=== PATIENT | male | born 1950 | race Caucasian/White ===

== ENCOUNTER 2021-07-20 12:33 | Emergency (ER) | payer MEDICARE, BC, OTHER ==
[~2021-07-20] VITALS: Ht 185.4 cm; Wt 101.2 kg
[2021-07-20] MEDS ORDERED: AMLODIPINE BESY10 MG PO (14:40)
[2021-07-20] MEDS ORDERED: OMEPRAZOLE20 MG PO (14:40)
[2021-07-20] MEDS ORDERED: HYDROCHLOROTH12.5 MG PO (14:41)
[2021-07-20] MEDS ORDERED: LOSARTAN-HCTZ1 EACH PO (14:41)
== END 2021-07-21 03:23 | disposition short-term general hospital (02) ==
LOC: ED 12:33
DX: K85.90 Acute pancreatitis without necrosis or infection, unspecified (principal); K81.9 Cholecystitis, unspecified; R22.9 Localized swelling, mass and lump, unspecified; K83.1 Obstruction of bile duct; Z20.822 Contact with and (suspected) exposure to COVID-19; I10 Essential (primary) hypertension; Z79.899 Other long term (current) drug therapy
CPT/HCPCS: 74177; 76705; 80053; 81001; 83605; 83690; 85025; 87040; 87088; 96366; 96375; 96376; 99285-25; C9803; J0690; J0694; J2270; J2405; J3480; J7030; U0003

== ENCOUNTER 2021-08-03 09:00 | Day surgery (SDC) | payer MEDICARE, OTHER ==
[~2021-08-03] VITALS: Ht 185.4 cm; Wt 97.0 kg
[~2021-08-03 09:00] MED LIST: AMLODIPINE BESY10 MG PO; HYDROCHLOROTH12.5 MG PO; LOSARTAN-HCTZ1 EACH PO; OMEPRAZOLE20 MG PO
--- NOTE | 2021-08-03 10:28 | NUR ---
up to br. returned to bed and warm blanket on. iv patent. updated on wait.
--- NOTE | 2021-08-03 13:12 | NUR ---
08/03/21 1312 VIDAL MORELOS 1306-PATIENT TO PACU ON 8L VIA MASK. PATIENT IS NONAROUSABLE. ORAL AIRWAY IN PLACE. TITRATED O2 TO 6L VIA MASK. VSS.
[2021-08-03] MEDS ORDERED: IBUPROFEN600 MG PO (13:20)
[2021-08-03] MEDS ORDERED: ACETAMINOPHEN500 MG PO (13:21)
[2021-08-03] MEDS ORDERED: OXYCODON-ACETA1 EAC2 PO (13:21)
--- NOTE | 2021-08-03 15:11 | NUR ---
1515 - PT DISCHARGED HOME WITH . PT TRANSFERRED TO THE WHEELCHAIR WITH OUT DIFFICULTY. PT LOADED INTO VEHICLE INDEPENDANTLY. PAPERWORK IN HAND.
--- NOTE | 2021-08-05 15:08 | OR ---
[facility] [address], [place] [address] Signed DATE OF OPERATION: 08/03/2021 SURGEON: Abhijit Esquivel MD PREOPERATIVE DIAGNOSES: 1. History of gallstone pancreatitis (resolved). 2. Chronic calculous cholecystitis. POSTOPERATIVE DIAGNOSES: 1. History of gallstone pancreatitis (resolved). 2. Chronic calculous cholecystitis. PROCEDURES: 1. Laparoscopic cholecystectomy with intraoperative cholangiogram, prolonged, complicated and difficult. 2. Surgeon-directed fluoroscopy. ANESTHESIA: General endotracheal, Thai Camron, WOODWORKER HELPER and local 10 mL of 0.25% Marcaine with epinephrine. INDICATION: This 70-year-old white man is a patient of Abhijit Aguero PA-C at [place], [place]. He presented to the [facility] Emergency Room on July 20, 2021, with upper abdominal pain, elevated liver enzymes and lipase level greater than 2000. A CT scan showed a "double duct sign." The gallbladder was not abnormally distended. There were no stones within the lumen. Ultrasound had been performed showing a dilated intrahepatic and extrahepatic bile duct without sign of stricture and no visualization of stone. There was thought to be possible neoplasm at the ampulla. On that basis, he was sent to [place], [place] where he was evaluated and ERCP has been intended. The ERCP showed no evidence of stone and an ERCP was never performed The patient is known to have heavy alcohol use and his pancreatitis was uncertain as to relation of gallstones versus alcohol abuse. An ultrasound in [place] did demonstrate in fact stones within the gallbladder. The patient is now doing much better. His bilirubin is only slightly elevated and liver enzymes particularly much better and lipase about 100. He is admitted at this time to undergo cholecystectomy preferred by a laparoscopic approach. He understands the risks of bleeding, infection, bile duct injury, need for open procedure and other unforeseen Electronically Signed By: ABHIJIT ESQUIVEL MD 08/05/21 1508 PATIENT NAME: CHAITANYA NEWBY OPERATIVE REPORT DATE OF : 54 REPORT #: [id number] PHYSICIAN: ABHIJIT ESQUIVEL MD PCP: ABHIJIT AGUERO REPORT IS CONFIDENTIAL AND NOT TO BE RELEASED WITHOUT AUTHORIZATION [facility] [address] [place], [place] [address] Signed complications. Understanding this, he wished to proceed. FINDINGS: The gallbladder was largely obscured by dense omental adhesions, but was ultimately dissected free. This was prolonged and difficult but it was accomplished safely. The gallbladder itself had chronic inflammatory change of the infundibulum in particular. Cholangiogram performed showed no sign of obstructing stone. The biliary tree was still slightly dilated, particularly the cystic duct which was markedly dilated and at least the diameter of the common hepatic duct. It was not only clipped, but secured with an Endoloop tie as well. The gallbladder once excised had small dark soft stones. No sign of neoplasm. The liver itself appeared normal without sign of cirrhotic changes. There was no saponification noted. Given the extent of dissection with omental adhesions, fibrin glue (Tisseel) was used to good effect. DESCRIPTION OF PROCEDURE: The patient was brought to the operating room, given a general endotracheal anesthetic. Preoperative antibiotics were given. Sequential compression device stockings used and heparin subcutaneously administered. The abdomen was prepared with chlorhexidine solution and draped sterilely. An infraumbilical incision was made and using an open Luis Fernando cannula technique pneumoperitoneum achieved to a level of 14 mmHg of carbon dioxide gas. Intra-abdominal inspection showed no sign of ascites or carcinomatosis. The liver appeared normal without nodular changes or cirrhotic changes in any way. The gallbladder was completely obscured from view. Three additional trocars were placed in usual configuration in the subxiphoid, right midclavicular, and right anterior axillary line. Gallbladder tip was elevated and dense omental adhesions were noted. These were taken down with blunt electrocautery dissection sequentially elevating the liver ultimately securing it well. With hook type electrocautery, the infundibulum was dissected free. Cystic arterial branch was identified as well as a relatively large cystic duct. A window was created between the cystic duct and the liver and the critical view of safety maintained identifying well the cystic duct. A clip was applied across gallbladder cystic duct junction, but it certainly did not cover it given its dilated appearance. A transverse choledochotomy was made in the cystic duct, egress of minimal amounts of bile was noted. Using an Denson type cholangiocatheter intraoperative cholangiography was undertaken showing free flow of contrast in the biliary tree. The biliary tree was notable for a very long cystic duct and inserted very distally on a common hepatic and common bile duct junction. Notably, the cystic duct was as dilated in its appearance as the common hepatic duct itself. There was no sign of filling defect and contrast flowed into the duodenum. The catheter was removed the cystic duct was doubly clipped and additionally secured with a PDS Endoloop tie. The gallbladder was dissected free in a retrograde fashion Electronically Signed By: ABHIJIT ESQUIVEL MD 08/05/21 1508 PATIENT NAME: CHAITANYA NEWBY OPERATIVE REPORT DATE OF : 54 REPORT #: [id number] PHYSICIAN: ABHIJIT ESQUIVEL MD PCP: ABHIJIT AGUERO REPORT IS CONFIDENTIAL AND NOT TO BE RELEASED WITHOUT AUTHORIZATION [facility] [address] [place], [place] [address] Signed using electrocautery. The gallbladder was entered and some bile was spilled, but no stone was spilled. The gallbladder was placed in an endobag and extracted through the infraumbilical port site without problem, opened on the back table and found to have chronic and subacute inflammation as well as soft and dark gallstones. Irrigation was undertaken hepatic space. The clips and the Endoloop tie to the cystic duct were secured. There was no sign of bile leak or other problem. Irrigation was undertaken more fully. Fibrin glue (Tisseel) was applied to the subhepatic space to assure hemostasis particularly given the extent of dissection of the omentum. Excess irrigation fluid was suctioned free and plans made for closure. The infraumbilical fascial incision was reapproximated with interrupted 0 Vicryl suture. Irrigation was undertaken. A 10 mL of 0.25% Marcaine with epinephrine injected locally. The skin was closed with interrupted 3-0 Vicryl and Steri-Strips were applied. The patient was ultimately extubated and transferred to the recovery room in good condition having suffered no complication. Sponge, needle, and instrument counts were reported as correct x3. MD CATINA Baker/HANK /[id number] cc: TIMOTHY Kennedy Copies: ABHIJIT AGUERO ~ Electronically Signed By: ABHIJIT ESQUIVEL MD 08/05/21 1508 PATIENT NAME: CHAITANYA NEWBY OPERATIVE REPORT DATE OF : 54 REPORT #: [id number] PHYSICIAN: ABHIJIT ESQUIVEL MD PCP: ABHIJIT AGUERO REPORT IS CONFIDENTIAL AND NOT TO BE RELEASED WITHOUT AUTHORIZATION
--- NOTE | 2021-08-07 13:33 | PATH ---
[facility] [address] [facility] [place], [place] [address] Signed SPECIMEN(S): A GALLBLADDER AND STONES SPECIMEN SOURCE: A. GALLBLADDER AND STONES CLINICAL HISTORY: Pre: Gallstone, acute pancreatitis, RUQ pain. Post: Lap leslie. FINAL PATHOLOGIC DIAGNOSIS: Gallbladder, cholecystectomy: - Acute and chronic calculous cholecystitis. BRP:cml:C2NR MICROSCOPIC EXAMINATION: Histologic sections of all submitted blocks are examined by light microscopy. These findings, together with the gross examination, support the pathologic diagnosis. GROSS DESCRIPTION: The specimen, labeled "Santiago Greene," and designated on the requisition "gallbladder and stones," is received in formalin and consists of Specimen: Previously opened gallbladder. Dimensions: 9.1 x 5.5 x 2.0 cm. Serosa: Pale pink and smooth. Cystic Duct: Inked, unobstructed. Calculi: 1.2 x 1.2 x 0.3 cm aggregate of orange-brown soft calculi. Mucosa: Madelia-rasheed and velvety. Wall thickness: 0.3-0.4 cm. Lymph node: No pericystic lymph nodes are grossly identified. Additional: None. Therapy Director sections are submitted in cassette (A1). FB (under the direct supervision of a pathologist) The Gross Description was prepared using a voice recognition system. The report was reviewed for accuracy; however, sound-alike word errors, addition and/or deletions may occur. If there is any question about this report, please contact Client Services. PERFORMING LABORATORY: The technical component was performed by [facility] [employer], [address] [place] [id number] (Paper Production Engineer: Kellee Langston MD; CLIA# [id number]). Professional interpretation was performed by [facility] PATIENT NAME: CHAITANYA GREENE PATHOLOGY DATE OF : 54 REPORT #: [id number] PHYSICIAN: LETTY PATHOLOGY PCP: ABHIJIT TAI REPORT IS CONFIDENTIAL AND NOT TO BE RELEASED WITHOUT AUTHORIZATION [facility] [address] [place], [place] [address] Signed [facility] branch, [address] [address] (CLIA# [id number]). Diagnostician: Luís Mullen MD Pathologist Electronically Signed 08/07/2021 Copies: ~ PATIENT NAME: CHAITANYA GREENE PATHOLOGY DATE OF : 54 REPORT #: [id number] PHYSICIAN: LETTY PATHOLOGY PCP: ABHIJIT TAI REPORT IS CONFIDENTIAL AND NOT TO BE RELEASED WITHOUT AUTHORIZATION
== END 2021-08-03 15:09 | disposition home or self-care (01) ==
LOC: DS 09:00
PROVIDERS: ATTEND Surgery
PROC: BF13YZZ Fluoroscopy of Gallbladder and Bile Ducts using Other Contrast (ICD-10-PCS; 2021-08-03)
PROC: 0FT44ZZ Resection of Gallbladder, Percutaneous Endoscopic Approach (ICD-10-PCS; principal; 2021-08-03 11:15)
DX: K80.12 Calculus of gallbladder with acute and chronic cholecystitis without obstruction (principal); I10 Essential (primary) hypertension; K21.9 Gastro-esophageal reflux disease without esophagitis; M19.90 Unspecified osteoarthritis, unspecified site; G47.33 Obstructive sleep apnea (adult) (pediatric); Z79.899 Other long term (current) drug therapy
CPT/HCPCS: 00790; 74300; J0690; J1100; J1644; J1885; J2001; J2405; J2704; J3010; J7121; Q9967

== ENCOUNTER 2025-07-28 09:09 | Emergency (ER) | payer MEDICARE, BC ==
[~2025-07-28] VITALS: Ht 185.4 cm; Wt 95.1 kg
[~2025-07-28 09:09] MED LIST changes: +ACETAMINOPHEN500 MG PO; +IBUPROFEN600 MG PO; +MELOXICAM7.5 MG PO; +OXYCODON-ACETA1 EAC2 PO
[2025-07-28] MEDS ORDERED: HYDROCHLOROTH12.5 MG PO (09:26)
[2025-07-28] MEDS ORDERED: IBUPROFEN 600 MG TAB PO ONE (09:45)
[2025-07-28] MEDS ORDERED: ACETAMINOPHEN 500 MG TAB PO ONE (10:00)
[2025-07-28 10:57] VITALS: BP 150/82
== END 2025-07-28 10:57 | disposition home or self-care (01) ==
LOC: ED 09:09
DX: S20.212A Contusion of left front wall of thorax, initial encounter (principal); W28.XXXA Contact with powered lawn mower, initial encounter; I10 Essential (primary) hypertension
CPT/HCPCS: 71250; 99283-25; A9270